=== PATIENT | male | born 1995 | race Caucasian/White ===

== ENCOUNTER 2020-06-11 20:47 | Emergency (ER) | payer OTHER ==
[~2020-06-11] VITALS: Ht 175.3 cm; Wt 80.5 kg
[2020-06-11] MEDS ORDERED: LIPI10TA PO (21:02)
--- NOTE | 2020-06-11 21:52 | REPVR ---
PROCEDURE INFORMATION: Exam: US Scrotum Exam date and time: 06/11/2020 9:41 PM Age: 24 years old Clinical indication: Pain; Other: Lump in lt scrotum; Additional info: Lump with tenderness TECHNIQUE: Imaging protocol: Real-time ultrasound of the scrotum and contents with color Doppler and image documentation. COMPARISON: No relevant prior studies available. FINDINGS: Right testicle: The right testis demonstrates homogeneous parenchyma and measures 3.9 x 6.4 x 2.6 cm. Normal blood flow is present with a resistive index of 0.53. Left testicle: The left testis demonstrates homogeneous parenchyma and measures 3.5 x 5.3 x 3.3 cm with normal blood flow and a resistive index of 0.65. Epididymides: The right epididymal head measures 9 mm. The left epididymal head measures 11 mm with a 3-4 mm cyst. Scrotum: Minimal right hydrocele. IMPRESSION: 1. Left epididymal head cyst measuring 3-4 mm. 2. Otherwise negative testicular sonogram with bilateral testicular blood flow. No torsion. Electronically signed by: Kev Cunha On 06/11/2020 21:52:23 PM
[2020-06-11 22:42] VITALS: BP 132/78
[2020-06-11 23:29] LABS: CHLAMYDIA DNA AMPLIFICATION NEGATIVE (NEGATIVE); GC DNA AMPLIFICATION NEGATIVE (NEGATIVE)
== END 2020-06-11 22:45 | disposition home or self-care (01) ==
LOC: M ED 20:47
DX: N50.3 Cyst of epididymis (principal); Z79.899 Other long term (current) drug therapy